=== PATIENT | female | born 1945 | race Caucasian/White ===

== ENCOUNTER 2017-08-10 22:06 | Emergency (ER) | payer SELFPAY, OTHER, MEDICARE | END 2017-08-11 04:37 | disposition left against medical advice (07) | LOC: E/R 22:06 | DX: Z53.21 Procedure and treatment not carried out due to patient leaving prior to being seen by health care provider (principal) ==

== ENCOUNTER 2017-08-14 09:47 | Emergency (ER) | payer MEDICARE, OTHER ==
[2017-08-14] MEDS: ONDANSETRON 4 MG INJ IV (13:46)
[2017-08-14] MEDS: morphine 4 MG/ML VIAL IV (13:46)
[2017-08-14 13:55] LABS: ADD MAN DIFF? NO
[2017-08-14 13:58] LABS: BASOPHILS % 0.3 % (0.0-2.0); EOSINOPHILS # 0.1 10^3/ul (0.0-0.5); HEMATOCRIT 38.3 % (37.0-47.0); HEMOGLOBIN 12.6 g/dl (12.0-16.0); LYMPHOCYTES # 1.7 10^3/ul (0.8-2.9); LYMPHOCYTES % 14.4 % (15.0-51.0); MEAN CORPUSCULAR HEMOGLOBIN 31.8 pg (29.0-33.0); MEAN CORPUSCULAR HGB CONC 32.9 g/dl (32.0-37.0); MEAN CORPUSCULAR VOLUME 96.7 fl (82.0-101.0); MEAN PLATELET VOLUME 11.1 fl (7.4-10.4); MONOCYTE # 0.8 10^3/ul (0.3-0.9); MONOCYTES % 6.7 % (0.0-11.0); NEUTROPHILS % 77.3 % (39.0-77.0); PLATELET COUNT 203 10^3/UL (140-415); RED BLOOD COUNT 3.96 10^6/ul (4.20-5.40); RED CELL DISTRIBUTION WIDTH 13.5 % (11.5-14.5)
[2017-08-14 13:58] LABS: WHITE BLOOD COUNT 11.7 10^3/ul (4.8-10.8)
[2017-08-14 14:14] LABS: ALANINE AMINOTRANSFERASE 26 IU/L (13-69); ALBUMIN 4.2 g/dl (3.3-4.9); ALBUMIN/GLOBULIN RATIO 1.31; ALKALINE PHOSPHATASE 69 IU/L (42-121); ANION GAP 11 (8-16); ASPARTATE AMINO TRANSFERASE 22 IU/L (15-46); BILIRUBIN,INDIRECT 0.3 mg/dl (0-1.1); BILIRUBIN,TOTAL 0.3 mg/dl (0.2-1.3); BLOOD UREA NITROGEN 15 mg/dl (7-20); CALCIUM 9.8 mg/dl (8.4-10.2); CARBON DIOXIDE 34 mmol/L (21-31); CHLORIDE 102 mmol/L (97-110); CREATININE 0.83 mg/dl (0.44-1.00); GLUCOSE 101 mg/dl (70-220); POTASSIUM 3.9 mmol/L (3.5-5.1); SODIUM 143 mmol/L (135-144); TOTAL PROTEIN 7.4 g/dl (6.1-8.1)
[2017-08-14 14:22] LABS: B-TYPE NATRIURETIC PEPTIDE 740 PG/ML (0-125)
[2017-08-14] MEDS: FUROSEMIDE 40 MG INJ IV (18:30)
== END 2017-08-14 19:41 | disposition home or self-care (01) ==
LOC: E/R 19:41
DX: R60.0 Localized edema (principal); I10 Essential (primary) hypertension; F17.210 Nicotine dependence, cigarettes, uncomplicated; R06.02 Shortness of breath
CPT/HCPCS: 36415; 71045; 80053; 83880; 85025; 93970; 96374; 96375; 99285-25

== ENCOUNTER 2017-11-23 11:20 | Emergency (ER) | payer MEDICARE, OTHER ==
[2017-11-23 12:24] LABS: ADD MAN DIFF? NO
[2017-11-23 12:28] LABS: BASOPHILS % 0.4 % (0.0-2.0); EOSINOPHILS % 0.3 % (0.0-7.0); HEMATOCRIT 45.6 % (37.0-47.0); HEMOGLOBIN 14.9 g/dl (12.0-16.0); LYMPHOCYTES # 1.6 10^3/ul (0.8-2.9); LYMPHOCYTES % 14.7 % (15.0-51.0); MEAN CORPUSCULAR HGB CONC 32.7 g/dl (32.0-37.0); MEAN CORPUSCULAR VOLUME 94.8 fl (82.0-101.0); MEAN PLATELET VOLUME 11.4 fl (7.4-10.4); MONOCYTE # 0.7 10^3/ul (0.3-0.9); MONOCYTES % 6.5 % (0.0-11.0); NEUTROPHIL # 8.7 10^3/ul (1.6-7.5); NEUTROPHILS % 77.6 % (39.0-77.0); PLATELET COUNT 183 10^3/UL (140-415); RED BLOOD COUNT 4.81 10^6/ul (4.20-5.40); RED CELL DISTRIBUTION WIDTH 13.6 % (11.5-14.5)
[2017-11-23 12:28] LABS: WHITE BLOOD COUNT 11.2 10^3/ul (4.8-10.8)
[2017-11-23] MEDS: ONDANSETRON 4 MG INJ IV (12:36)
[2017-11-23] MEDS: HYDROmorphONE 1 MG/5 ML IV SYRINGE IV (12:36)
[2017-11-23 13:09] LABS: ADD UMIC YES; UR ASCORBIC ACID NEGATIVE (NEGATIVE); UR BILIRUBIN (Dip) NEGATIVE (NEGATIVE); UR BLOOD (Dip) 2+ mg/dL (NEGATIVE); UR CLARITY CLEAR (CLEAR); UR COLOR YELLOW (YELLOW); UR GLUCOSE (Dip) NEGATIVE (NEGATIVE); UR KETONES (Dip) NEGATIVE (NEGATIVE); UR LEUKOCYTE ESTERASE (Dip) TRACE Leu/ul (NEGATIVE); UR NITRITE (Dip) NEGATIVE (NEGATIVE); UR RBC 16 /HPF (0-5); UR SPECIFIC GRAVITY (Dip) 1.016 (1.003-1.030); UR TOTAL PROTEIN (Dip) 2+ mg/dl (NEGATIVE); UR UROBILINOGEN (Dip) NEGATIVE (NEGATIVE); UR WBC 1 /HPF (0-5)
[2017-11-23 13:30] LABS: ALANINE AMINOTRANSFERASE 32 IU/L (13-69); ALBUMIN 4.7 g/dl (3.3-4.9); ALKALINE PHOSPHATASE 86 IU/L (42-121); ANION GAP 17 (8-16); ASPARTATE AMINO TRANSFERASE 27 IU/L (15-46); BILIRUBIN,INDIRECT 0.5 mg/dl (0-1.1); BILIRUBIN,TOTAL 0.5 mg/dl (0.2-1.3); BLOOD UREA NITROGEN 16 mg/dl (7-20); CALCIUM 9.7 mg/dl (8.4-10.2); CARBON DIOXIDE 30 mmol/L (21-31); CHLORIDE 103 mmol/L (97-110); CREATININE 0.68 mg/dl (0.44-1.00); GLUCOSE 101 mg/dl (70-220); LIPASE 17 U/L (23-300); POTASSIUM 3.4 mmol/L (3.5-5.1); SODIUM 147 mmol/L (135-144); TOTAL PROTEIN 8.3 g/dl (6.1-8.1)
== END 2017-11-23 14:16 | disposition home or self-care (01) ==
LOC: E/R 11:20
DX: R10.9 Unspecified abdominal pain (principal); I10 Essential (primary) hypertension; Z87.891 Personal history of nicotine dependence
CPT/HCPCS: 36415; 74176; 80053; 81001; 83690; 85025; 96374; 96375; 99285-25

== ENCOUNTER 2017-12-17 07:26 | Emergency (ER) | payer MEDICARE, OTHER ==
[2017-12-17] MEDS: HYDROmorphONE 1 MG/ML SYG IV ×2 (09:00→10:36)
[2017-12-17] MEDS: SOD CHLORIDE 0.9% 1,000 ML IV (09:00)
[2017-12-17] MEDS: ONDANSETRON 4 MG INJ IV ×2 (09:00→10:36)
[2017-12-17 09:39] LABS: ALANINE AMINOTRANSFERASE 21 IU/L (13-69); ALBUMIN 4.6 g/dl (3.3-4.9); ALBUMIN/GLOBULIN RATIO 1.17; ALKALINE PHOSPHATASE 92 IU/L (42-121); AMYLASE 50 U/L (11-123); ANION GAP 16 (8-16); ASPARTATE AMINO TRANSFERASE 22 IU/L (15-46); BILIRUBIN,INDIRECT 0.6 mg/dl (0-1.1); BILIRUBIN,TOTAL 0.6 mg/dl (0.2-1.3); BLOOD UREA NITROGEN 35 mg/dl (7-20); CALCIUM 9.7 mg/dl (8.4-10.2); CARBON DIOXIDE 29 mmol/L (21-31); CHLORIDE 101 mmol/L (97-110); CREATININE 1.34 mg/dl (0.44-1.00); GLUCOSE 84 mg/dl (70-220); LIPASE 15 U/L (23-300); SODIUM 142 mmol/L (135-144); TOTAL PROTEIN 8.5 g/dl (6.1-8.1)
[2017-12-17 09:50] LABS: ADD MAN DIFF? NO
[2017-12-17 09:51] LABS: BASOPHILS % 0.5 % (0.0-2.0); EOSINOPHILS # 0.2 10^3/ul (0.0-0.5); HEMATOCRIT 36.1 % (37.0-47.0); HEMOGLOBIN 11.5 g/dl (12.0-16.0); LYMPHOCYTES # 2.2 10^3/ul (0.8-2.9); MEAN CORPUSCULAR HEMOGLOBIN 30.9 pg (29.0-33.0); MEAN CORPUSCULAR HGB CONC 31.9 g/dl (32.0-37.0); MEAN PLATELET VOLUME 10.9 fl (7.4-10.4); MONOCYTE # 0.7 10^3/ul (0.3-0.9); MONOCYTES % 8.6 % (0.0-11.0); NEUTROPHIL # 4.7 10^3/ul (1.6-7.5); NEUTROPHILS % 60.8 % (39.0-77.0); PLATELET COUNT 180 10^3/UL (140-415); RED BLOOD COUNT 3.72 10^6/ul (4.20-5.40); RED CELL DISTRIBUTION WIDTH 12.6 % (11.5-14.5)
[2017-12-17 09:51] LABS: WHITE BLOOD COUNT 7.7 10^3/ul (4.8-10.8)
[2017-12-17 09:52] LABS: TROPONIN-I < 0.012 ng/ml (0.000-0.120)
[2017-12-17] MEDS: MECLIZINE 12.5 MG TAB PO (12:28)
[2017-12-17 12:43] LABS: ADD UMIC YES; UR ASCORBIC ACID NEGATIVE (NEGATIVE); UR BILIRUBIN (Dip) NEGATIVE (NEGATIVE); UR BLOOD (Dip) 1+ mg/dL (NEGATIVE); UR CLARITY CLEAR (CLEAR); UR COLOR YELLOW (YELLOW); UR GLUCOSE (Dip) NEGATIVE (NEGATIVE); UR KETONES (Dip) TRACE mg/dL (NEGATIVE); UR LEUKOCYTE ESTERASE (Dip) NEGATIVE Leu/ul (NEGATIVE); UR NITRITE (Dip) NEGATIVE (NEGATIVE); UR RBC 2 /HPF (0-5); UR SPECIFIC GRAVITY (Dip) 1.015 (1.003-1.030); UR TOTAL PROTEIN (Dip) NEGATIVE (NEGATIVE); UR UROBILINOGEN (Dip) NEGATIVE (NEGATIVE); UR WBC 0 /HPF (0-5)
== END 2017-12-17 13:56 | disposition home or self-care (01) ==
LOC: E/R 07:26
DX: R10.9 Unspecified abdominal pain (principal); I10 Essential (primary) hypertension; R40.2142 Coma scale, eyes open, spontaneous, at arrival to emergency department; R40.2252 Coma scale, best verbal response, oriented, at arrival to emergency department; R40.2362 Coma scale, best motor response, obeys commands, at arrival to emergency department; Z85.528 Personal history of other malignant neoplasm of kidney
CPT/HCPCS: 74176; 80053; 81001; 82150; 83690; 84484; 85025; 93005; 96374; 96375; 96376; 99285-25

== ENCOUNTER 2017-12-30 22:15 | Emergency (ER) | payer MEDICARE, OTHER ==
[2017-12-30] MEDS: HYDROmorphONE 0.5 MG/0.5 ML SYG IV (22:50)
[2017-12-30 22:57] LABS: ADD MAN DIFF? NO
[2017-12-30 22:59] LABS: BASOPHILS % 0.6 % (0.0-2.0); EOSINOPHILS # 0.1 10^3/ul (0.0-0.5); EOSINOPHILS % 1.4 % (0.0-7.0); HEMATOCRIT 40.2 % (37.0-47.0); HEMOGLOBIN 12.9 g/dl (12.0-16.0); LYMPHOCYTES # 1.2 10^3/ul (0.8-2.9); LYMPHOCYTES % 19.3 % (15.0-51.0); MEAN CORPUSCULAR HEMOGLOBIN 30.7 pg (29.0-33.0); MEAN CORPUSCULAR HGB CONC 32.1 g/dl (32.0-37.0); MEAN CORPUSCULAR VOLUME 95.7 fl (82.0-101.0); MONOCYTE # 0.6 10^3/ul (0.3-0.9); MONOCYTES % 8.6 % (0.0-11.0); NEUTROPHIL # 4.5 10^3/ul (1.6-7.5); NEUTROPHILS % 69.9 % (39.0-77.0); PLATELET COUNT 196 10^3/UL (140-415); RED CELL DISTRIBUTION WIDTH 12.2 % (11.5-14.5); URINE BLOOD (Dip) POC 1+ (NEGATIVE); URINE GLUCOSE (Dip) POC Negative (NEGATIVE); URINE KETONES (Dip) POC Negative (NEGATIVE); URINE LEUKOCYTE EST (Dip) POC Negative (NEGATIVE); URINE NITRITE (Dip) POC Negative (NEGATIVE); URINE TOTAL PROTEIN POC Negative (NEGATIVE)
[2017-12-30 22:59] LABS: URINE PH (Dip) POC 8.5 (5.0-8.5)
[2017-12-30 22:59] LABS: WHITE BLOOD COUNT 6.4 10^3/ul (4.8-10.8)
[2017-12-30 23:21] LABS: ALANINE AMINOTRANSFERASE 18 IU/L (13-69); ALBUMIN 4.4 g/dl (3.3-4.9); ALBUMIN/GLOBULIN RATIO 1.41; ALKALINE PHOSPHATASE 77 IU/L (42-121); ANION GAP 13 (8-16); ASPARTATE AMINO TRANSFERASE 19 IU/L (15-46); BILIRUBIN,INDIRECT 0.3 mg/dl (0-1.1); BILIRUBIN,TOTAL 0.3 mg/dl (0.2-1.3); BLOOD UREA NITROGEN 17 mg/dl (7-20); CALCIUM 9.8 mg/dl (8.4-10.2); CARBON DIOXIDE 34 mmol/L (21-31); CHLORIDE 101 mmol/L (97-110); CREATININE 0.77 mg/dl (0.44-1.00); GLUCOSE 110 mg/dl (70-220); LIPASE 13 U/L (23-300); POTASSIUM 3.3 mmol/L (3.5-5.1); SODIUM 145 mmol/L (135-144); TOTAL PROTEIN 7.5 g/dl (6.1-8.1)
[2017-12-30] MEDS ORDERED: POTASSIUM CHLORIDE (SR) 20 MEQ TAB PO (23:43)
[2017-12-31] MEDS: POTASSIUM CHLORIDE 20 MEQ POWDER FOR ORAL SOLN PO (00:23)
== END 2017-12-31 04:00 | disposition home or self-care (01) ==
LOC: E/R 12-31 04:00
DX: R10.9 Unspecified abdominal pain (principal); E87.6 Hypokalemia; R31.9 Hematuria, unspecified; I10 Essential (primary) hypertension; E03.9 Hypothyroidism, unspecified; J44.9 Chronic obstructive pulmonary disease, unspecified; Z85.528 Personal history of other malignant neoplasm of kidney; Z96.642 Presence of left artificial hip joint
CPT/HCPCS: 36415; 72100; 80053; 81003; 83690; 85025; 96374; 99284-25

== ENCOUNTER 2018-01-30 16:36 | Observation (INO) | payer MEDICARE, OTHER ==
[2018-01-30 17:27] LABS: ADD MAN DIFF? NO
[2018-01-30 17:29] LABS: BASOPHILS % 0.4 % (0.0-2.0); EOSINOPHILS # 0.3 10^3/ul (0.0-0.5); EOSINOPHILS % 3.6 % (0.0-7.0); HEMATOCRIT 35.3 % (37.0-47.0); LYMPHOCYTES # 2.2 10^3/ul (0.8-2.9); LYMPHOCYTES % 29.8 % (15.0-51.0); MEAN CORPUSCULAR HEMOGLOBIN 30.7 pg (29.0-33.0); MEAN CORPUSCULAR HGB CONC 31.2 g/dl (32.0-37.0); MEAN CORPUSCULAR VOLUME 98.6 fl (82.0-101.0); MEAN PLATELET VOLUME 11.1 fl (7.4-10.4); MONOCYTE # 0.6 10^3/ul (0.3-0.9); MONOCYTES % 7.8 % (0.0-11.0); NEUTROPHIL # 4.3 10^3/ul (1.6-7.5); NEUTROPHILS % 58.3 % (39.0-77.0); PLATELET COUNT 165 10^3/UL (140-415); RED BLOOD COUNT 3.58 10^6/ul (4.20-5.40); RED CELL DISTRIBUTION WIDTH 12.2 % (11.5-14.5)
[2018-01-30 17:29] LABS: WHITE BLOOD COUNT 7.3 10^3/ul (4.8-10.8)
[2018-01-30] MEDS: SOD CHLORIDE 0.9% 1,000 ML IV ×2 (17:29→19:55)
[2018-01-30 18:19] LABS: ALANINE AMINOTRANSFERASE 16 IU/L (13-69); ALBUMIN 3.8 g/dl (3.3-4.9); ALBUMIN/GLOBULIN RATIO 1.35; ALKALINE PHOSPHATASE 59 IU/L (42-121); ANION GAP 10 (8-16); ASPARTATE AMINO TRANSFERASE 23 IU/L (15-46); BILIRUBIN,INDIRECT 0.2 mg/dl (0-1.1); BILIRUBIN,TOTAL 0.2 mg/dl (0.2-1.3); BLOOD UREA NITROGEN 18 mg/dl (7-20); CALCIUM 8.7 mg/dl (8.4-10.2); CARBON DIOXIDE 27 mmol/L (21-31); CHLORIDE 105 mmol/L (97-110); CREATININE 0.81 mg/dl (0.44-1.00); GLUCOSE 85 mg/dl (70-220); SODIUM 138 mmol/L (135-144); TOTAL PROTEIN 6.6 g/dl (6.1-8.1)
[2018-01-30 18:34] LABS: TROPONIN-I < 0.010 ng/ml (0.000-0.120)
[2018-01-30] MEDS ORDERED: ACETAMINOPHEN 325 MG TAB PO ×2 (20:30→21:30)
[2018-01-30] MEDS ORDERED: ONDANSETRON 4 MG INJ IV (20:30)
[2018-01-30] MEDS ORDERED: NACL 0.9% 3 ML SYG IV (21:30)
[2018-01-30] MEDS ORDERED: BISACODYL (EC) 5 MG TAB PO (21:30)
[2018-01-30] MEDS ORDERED: DOCUSATE SODIUM 100 MG CAP PO (21:30)
[2018-01-30 21:53] LABS: ADD UMIC YES; UR ASCORBIC ACID NEGATIVE (NEGATIVE); UR BILIRUBIN (Dip) NEGATIVE (NEGATIVE); UR BLOOD (Dip) NEGATIVE (NEGATIVE); UR CLARITY CLEAR (CLEAR); UR COLOR YELLOW (YELLOW); UR GLUCOSE (Dip) NEGATIVE (NEGATIVE); UR KETONES (Dip) NEGATIVE (NEGATIVE); UR LEUKOCYTE ESTERASE (Dip) 1+ Leu/ul (NEGATIVE); UR NITRITE (Dip) NEGATIVE (NEGATIVE); UR RBC 2 /HPF (0-5); UR SPECIFIC GRAVITY (Dip) 1.008 (1.003-1.030); UR TOTAL PROTEIN (Dip) NEGATIVE (NEGATIVE); UR UROBILINOGEN (Dip) NEGATIVE (NEGATIVE); UR WBC 7 /HPF (0-5)
[2018-01-30 22:12] LABS: AMPHETAMINE/METHAMPHETAMINE Negative (NEGATIVE); BARBITURATES Negative (NEGATIVE); BENZODIAZEPINES Negative (NEGATIVE); CANNABINOIDS Positive (NEGATIVE); COCAINE Negative (NEGATIVE)
[2018-01-30 22:13] LABS: OPIATES Positive (NEGATIVE)
[2018-01-31] MEDS: HYDROCODONE/APAP (5/325) TAB PO (02:13)
[2018-01-31] MEDS ORDERED: HYDROCODONE/APAP (5/325) TAB PO (04:30)
[2018-01-31] MEDS: ONDANSETRON 4 MG INJ IV (05:49)
[2018-01-31 08:43] LABS: ADD MAN DIFF? NO
[2018-01-31 08:56] LABS: WHITE BLOOD COUNT 7.4 10^3/ul (4.8-10.8)
[2018-01-31 08:56] LABS: BASOPHILS % 0.4 % (0.0-2.0); EOSINOPHILS # 0.2 10^3/ul (0.0-0.5); EOSINOPHILS % 2.3 % (0.0-7.0); HEMATOCRIT 36.9 % (37.0-47.0); HEMOGLOBIN 11.6 g/dl (12.0-16.0); LYMPHOCYTES # 1.2 10^3/ul (0.8-2.9); LYMPHOCYTES % 16.2 % (15.0-51.0); MEAN CORPUSCULAR HEMOGLOBIN 30.9 pg (29.0-33.0); MEAN CORPUSCULAR HGB CONC 31.4 g/dl (32.0-37.0); MEAN CORPUSCULAR VOLUME 98.4 fl (82.0-101.0); MEAN PLATELET VOLUME 12.1 fl (7.4-10.4); MONOCYTE # 0.5 10^3/ul (0.3-0.9); NEUTROPHIL # 5.5 10^3/ul (1.6-7.5); NEUTROPHILS % 73.8 % (39.0-77.0); PLATELET COUNT 151 10^3/UL (140-415); RED BLOOD COUNT 3.75 10^6/ul (4.20-5.40); RED CELL DISTRIBUTION WIDTH 12.1 % (11.5-14.5)
[2018-01-31 08:58] LABS: POSITIVE DIFF @See below
[2018-01-31 09:49] LABS: ALANINE AMINOTRANSFERASE 14 IU/L (13-69); ALBUMIN 3.3 g/dl (3.3-4.9); ALBUMIN/GLOBULIN RATIO 1.22; ALKALINE PHOSPHATASE 54 IU/L (42-121); ANION GAP 7 (8-16); ASPARTATE AMINO TRANSFERASE 24 IU/L (15-46); BILIRUBIN,INDIRECT 0.4 mg/dl (0-1.1); BILIRUBIN,TOTAL 0.4 mg/dl (0.2-1.3); BLOOD UREA NITROGEN 16 mg/dl (7-20); CALCIUM 8.3 mg/dl (8.4-10.2); CARBON DIOXIDE 29 mmol/L (21-31); CHLORIDE 109 mmol/L (97-110); CREATININE 0.69 mg/dl (0.44-1.00); GLUCOSE 89 mg/dl (70-220); POTASSIUM 4.1 mmol/L (3.5-5.1); SODIUM 141 mmol/L (135-144)
[2018-01-31] MEDS: LEVOTHYROXINE 50 MCG TAB PO (10:12)
[2018-01-31] MEDS: GABAPENTIN 300 MG CAP PO (10:12)
[2018-01-31] MEDS: HYDROCHLOROTHIAZIDE 25 MG TAB PO (11:00)
== END 2018-01-31 12:45 | disposition home or self-care (01) ==
LOC: 2NE 20:27 → E/R 16:36
DX: G92 Toxic encephalopathy (principal); I10 Essential (primary) hypertension; E03.9 Hypothyroidism, unspecified; F31.9 Bipolar disorder, unspecified; F41.9 Anxiety disorder, unspecified; J44.9 Chronic obstructive pulmonary disease, unspecified; M19.90 Unspecified osteoarthritis, unspecified site; R63.4 Abnormal weight loss; G89.29 Other chronic pain; Z68.24 Body mass index [BMI] 24.0-24.9, adult; Z85.528 Personal history of other malignant neoplasm of kidney; S22.089D Unspecified fracture of T11-T12 vertebra, subsequent encounter for fracture with routine healing
CPT/HCPCS: 36415; 70450; 71045; 80053; 80307; 81001; 82962; 84484; 85025; 93005; 99285-25; G0378

== ENCOUNTER 2018-03-03 14:07 | Emergency (ER) | payer MEDICARE, OTHER ==
[2018-03-03 16:08] LABS: ADD UMIC YES; UR ASCORBIC ACID NEGATIVE (NEGATIVE); UR BACTERIA FEW /HPF (NONE SEEN); UR BILIRUBIN (Dip) NEGATIVE (NEGATIVE); UR BLOOD (Dip) NEGATIVE (NEGATIVE); UR CLARITY SLIGHTLY CLOUDY (CLEAR); UR COLOR YELLOW (YELLOW); UR GLUCOSE (Dip) NEGATIVE (NEGATIVE); UR KETONES (Dip) NEGATIVE (NEGATIVE); UR LEUKOCYTE ESTERASE (Dip) TRACE Leu/ul (NEGATIVE); UR MUCUS FEW /HPF (NONE SEEN); UR NITRITE (Dip) NEGATIVE (NEGATIVE); UR RBC 4 /HPF (0-5); UR SPECIFIC GRAVITY (Dip) 1.015 (1.003-1.030); UR SQUAMOUS EPITHELIAL CELL FEW /HPF (FEW); UR TOTAL PROTEIN (Dip) 1+ mg/dl (NEGATIVE); UR UROBILINOGEN (Dip) 1+ mg/dL (NEGATIVE); UR WBC 5 /HPF (0-5)
[2018-03-03] MEDS: HYDROCODONE/APAP (5/325) TAB PO (16:55)
== END 2018-03-03 18:28 | disposition home or self-care (01) ==
LOC: E/R 14:07
DX: M25.551 Pain in right hip (principal); R40.2142 Coma scale, eyes open, spontaneous, at arrival to emergency department; R40.2362 Coma scale, best motor response, obeys commands, at arrival to emergency department; R40.2252 Coma scale, best verbal response, oriented, at arrival to emergency department; Z85.528 Personal history of other malignant neoplasm of kidney; Z96.642 Presence of left artificial hip joint
CPT/HCPCS: 72170; 73502; 73510; 81001; 99284-25